=== PATIENT | female | born 1960 | race African-American/Black ===

== ENCOUNTER 2019-11-21 04:33 | Emergency (ER) | payer MEDICAID ==
[~2019-11-21] VITALS: Ht 170.2 cm; Wt 95.3 kg
[2019-11-21] MEDS ORDERED: cloNIDine HCL 0.1 MG TAB PO ONE (05:45)
[2019-11-21 06:59] VITALS: BP 125/80
== END 2019-11-21 07:35 | disposition home or self-care (01) ==
LOC: ER 04:33
DX: I10 Essential (primary) hypertension (principal); E11.9 Type 2 diabetes mellitus without complications; Z76.0 Encounter for issue of repeat prescription
CPT/HCPCS: 82962